=== PATIENT | female | born 1980 | race Caucasian/White ===

== ENCOUNTER 2016-08-10 22:51 | Emergency (ER) | payer OTHER ==
[~2016-08-10] VITALS: Ht 167.6 cm; Wt 86.6 kg
[2016-08-10] MEDS ORDERED: PRENTAB40 PO (22:59)
[2016-08-10] MEDS ORDERED: NS 1,000 ML IV ONE (23:45)
[2016-08-11 00:30] LABS: BASO % 0.6 % (0.0-1.0); EOS # 0.1 K/mm3 (0.0-0.50); EOS % 1.5 % (0.0-3.0); LARGE UNSTAINED CELL # 0.1 K/mm3 (0.0-0.4); LARGE UNSTAINED CELL % 2.3 % (0.0-4.0); LYMPH % 30.6 % (24.0-44.0); MEAN CORPUSCULAR HEMOGLOBIN 29.6 pg (27.0-33.0); MEAN CORPUSCULAR HGB CONC 33.6 g/dl (32.0-36.5); MONO # 0.5 K/mm3 (0.0-0.8); MONO % 7.9 % (0.0-5.0); NEUTROPHILS # 3.5 K/mm3 (1.8-7.7); NEUTROPHILS % 57.1 % (36.0-66.0); PLATELET COUNT, AUTOMATED 171 k/mm3 (150-450); RED CELL DISTRIBUTION WIDTH 12.2 % (11.5-14.5); WHITE BLOOD COUNT 6.1 K/mm3 (4.0-10.0)
[2016-08-11 01:03] LABS: ANION GAP 7 MEQ/L (8-16); BLOOD UREA NITROGEN 15 MG/DL (7-18); CALCIUM LEVEL 8.6 MG/DL (8.5-10.1); CARBON DIOXIDE LEVEL 29 MEQ/L (21-32); CHLORIDE LEVEL 105 MEQ/L (98-107); GLOMERULAR FILTRATION RATE > 60.0 (>60); GLUCOSE, FASTING 100 MG/DL (70-105); POTASSIUM SERUM 3.8 MEQ/L (3.5-5.1); SODIUM LEVEL 141 MEQ/L (136-145)
--- NOTE | 2016-08-11 01:30 | REPUSA ---
CLINICAL HISTORY: Vaginal bleeding. TECHNIQUE: Endovaginal ultrasound of the pelvis was performed. FINDINGS: The uterus is anteverted measuring 11.7 x 5.8 x 7.2 cm. Gestational sac measures 14.1 mm mean diameter, corresponding to gestational age of 6 weeks and 2 da ys. A pole is identified with crown-rump length of 6.4 mm, which corresponds to a gestational age o f 6 weeks and 3 days. heart motion is absent. The sac is moving during contractions. A small subchorionic hemorrhage is noted measuring 18.7 x 17.5 x 6.5 mm. Both ovaries are identified without adnexal mass or pelvic fluid collection. The right ovary measurin g 3.3 x 2.6 x 2.9 cm. The left ovary measures 4.9 x 3.3 x 3.6 cm. IMPRESSION: demise. The sac is moving during contractions. A small subchorionic hemorrhage is noted measuring 18.7 x 17.5 x 6.5 mm.
[2016-08-11 03:07] VITALS: BP 110/57
== END 2016-08-11 03:09 | disposition home or self-care (01) ==
LOC: M ED 08-11 00:10
DX: O20.0 Threatened abortion (principal); Z79.899 Other long term (current) drug therapy

== ENCOUNTER → 2016-08-11 | Outpatient (REF) | payer OTHER ==
[~2016-08-11] MED LIST: PRENTAB40 PO
== END ==
LOC: M LAB REF 14:55
PROVIDERS: ATTEND Student in an Organized Health Care Education/Training Program
DX: O03.9 Complete or unspecified spontaneous abortion without complication (principal)